=== PATIENT | female | born 1990 | race Caucasian/White ===

== ENCOUNTER 2016-02-27 13:43 | Emergency (ER) | payer OTHER ==
[~2016-02-27] VITALS: Ht 154.9 cm; Wt 47.7 kg
[~2016-02-27 13:43] MED LIST: ALBU8.5H4 IH; AZIT250T4 PO; Acetaminophen PO; Ascorbic Acid PO; BECL8.7A6 INHALATION; DOCU-41 PO; FERR-74 PO; HYDR-3797 PO; PRE10 PO; TRAM-14 PO
[2016-02-27 13:46] VITALS: BP 106/68; PULSE 80; RESP 30; O2SAT 100
--- NOTE | 2016-02-27 13:56 | ED.REPORT ---
HPI-URI / Cough / Cold Date of Service Feb 27, 2016 ED Provider: History of Present Illness: can't breath states patient. have asthma, started yesterday. uses inhaler and breathing treatment. primary care is marino. household is sick also. refusing x-ray. Nursing Notes Stated Complaint: SOB Chief Complaint: Respiratory Complaints Nursing Notes Reviewed: Yes Allergies: Coded Allergies: hydrocodone (Verified Allergy, Unknown, HIVES,RASH, 03/03/15) Scheduled ([Ascorbic Acid]) 500 MG TABLET 500 MG PO BIDWM Azithromycin (Zithromax (Z-Aj)) 250 Mg Tablet 250 MG PO DAILY Take two tablets by mouth on day 1, then take one tablet daily on days 2 through 5. Beclomethasone Dipropionate (Qvar) 8.7 Gm Aer.w.adap 1 PUFF INHALATION BID Docusate Sodium (Colace) 100 Mg Capsule 100 MG PO BID Ferrous Sulfate (Feosol) 325 Mg Tablet 325 MG PO BIDWM Prednisone (PredniSONE) 10 Mg Tablet 10 MG PO QID Scheduled PRN ([Acetaminophen]) 325 MG TABLET 650 MG PO Q4H PRN PRN For Mild Pain Albuterol HFA (Albuterol HFA) 8.5 Gm Hfa.aer.ad 1 PUFF IH Q4 PRN PRN For Shortness of Breath Hydroxyzine Pamoate (HydrOXYzine Pamoate) 25 Mg Capsule 25 MG PO Q6H PRN PRN ANXIETY Tramadol (Ultram) 50 Mg Tablet 50 MG PO Q6 PRN PRN For Mild Pain General Time Seen by MD: 13:55 Chief Complaint Cough, non-productive Hx Obtained From: Patient Past Medical History Past Medical History Notes: PCP: Dr. Lenz Past Medical History asthma depression ulcers Reports: Asthma Past Surgical History none Family History Noncontributory Smoking History Current Every Day Smoker Social History Alcohol Use: Denies alcohol use Drug Use: Denies drug use Other Social History: Lives with parents Occupation lives with grandmother, unemployed 02/27/2016 Ambulatory Status Independent Review of Systems Basic Review of Systems Cardiovascular: No chest pain, No dyspnea on exertion, No orthopnea, No parox noct dyspnea, No palpitations : No dysuria, No frequency Musculoskeletal: No extremity swelling, No extremity pain, Full range of motion , Joints NL Hematologic: No bleeding, No bruising Endocrine: No cold intolerance, No heat intolerance, No weight gain, No weight loss Psychiatric: Normal thought content Physical Exam Initial Vital Signs Vital Signs (First) Date Time Temp Pulse Resp B/P Pulse Ox O2 Delivery O2 Flow Rate FiO2 02/27/16 13:46 36.8 80 30 106/68 100 Room Air Initial VS: Reviewed, Vital signs normal Head / Eyes: Atraumatic, Normocephalic, PERRL Neck: Supple, Non-tender, Full range of motion Cardiovascular: Regular rate & rhythm, Heart sounds normal, Intact distal pulses Abdomen / GI: Soft, Non-tender, No guarding, No rebound, No distention Back: No CVA tenderness Lymphatic: No lymphadenopathy Extremities: Vascular intact, Neuro intact, No swelling, No tenderness Skin: Warm, Dry, No cyanosis Neurologic: Alert, Oriented, Nonfocal Psychiatric: Mood/affect normal, Behavior normal, Normal thought content General/Constitutional: Awake, Alert, No acute distress, Well appearing, Well developed, Well hydrated ENT: Atraumatic, Airway patent, Mucous membranes moist, Pharynx NL Respiratory / Chest: Atraumatic Wheezing / Retractions: Positive: Wheeze insp/exp diffuse, Wheezing moderate Head / Eyes: Atraumatic, Normocephalic, PERRL, EOMI Cardiovascular: Heart rate NL, Regular rhythm, Heart sounds NL Abdomen: Atraumatic, Soft, Non-tender Re-Eval/Medical Decision Med Decision/Clinical Course Med Decision/Clinical Course: patient with significant improvement after neb Discharge & Departure Impression: Primary Impression: Asthma Asthma complication type: with acute exacerbation Disposition: Home Patient Instructions: Asthma (ED) Additional Instructions: You received an influenza vaccine in the ER today. You also received a dose of decadron. You have received a prescription for decadron and azithromycin. You also received a a prescription for combivent nebulizer. This may help better that just albuterol. Please establish in primary care. You could help yourself by following with Dr. Lenz. REturn with any concerns. Referrals: Ruchi Lenz MD (PCP) EDSupervising Provider for APC: Thomas Connor DO copies to: Ruchi Lenz MD, Sue ARNP Feb 27, 2016 13:55
[2016-02-27] MEDS ORDERED: Albuterol 2.5 mg/3 mL Inhalation Solution NEB ONE (14:05)
[2016-02-27 14:12] VITALS: PULSE 80; RESP 24; O2SAT 98
[2016-02-27] MEDS ORDERED: Influenza (Adult) Vaccine 0.5 mL Syringe IM ONE (14:25)
[2016-02-27] MEDS ORDERED: Dexamethasone 20 mg/2 mL Oral Solution PO ONE (14:35)
== END 2016-02-27 14:42 | disposition home or self-care (01) ==
LOC: SED 13:43
DX: J45.901 Unspecified asthma with (acute) exacerbation (principal); F17.200 Nicotine dependence, unspecified, uncomplicated; Z88.5 Allergy status to narcotic agent
CPT/HCPCS: 94664; 96372; 99284; J7613; Q2039

== ENCOUNTER 2016-07-11 18:53 | Emergency (ER) | payer MEDICAID, OTHER ==
[~2016-07-11] VITALS: Ht 154.9 cm; Wt 52.3 kg
[2016-07-11 19:01] VITALS: BP 124/75; PULSE 121; RESP 22; O2SAT 98
== END 2016-07-11 20:45 | disposition left against medical advice (07) ==
LOC: SED 18:53
DX: R20.0 Anesthesia of skin (principal); Z53.21 Procedure and treatment not carried out due to patient leaving prior to being seen by health care provider